=== PATIENT | female | born 1970 | race African-American/Black ===

== ENCOUNTER 2024-09-05 14:58 | Emergency (ER) | payer BC ==
[~2024-09-05] VITALS: Ht 160 cm; Wt 70.0 kg
[2024-09-05 15:03] VITALS: O2SAT 99
[2024-09-05 15:58] LABS: BASOPHILS % 0.7 % (0.0-2.0); EOSINOPHILS % 0.3 % (0.0-5.0); HEMATOCRIT. 39.8 % (36.0-48.0); HEMOGLOBIN. 13.1 g/dL (12.0-16.0); LYMPHOCYTES % 20.2 % (20.0-50.0); MEAN CORPUSCULAR VOLUME 97.2 fL (81.0-99.0); MEAN PLATELET VOLUME 7.9 fl (7.4-10.4); MONOCYTES % 6.9 % (2.0-8.0); NEUTROPHILS % 71.9 % (40.0-76.0); PLATELET 208 x1000/uL (130-400); RED BLOOD CELL COUNT 4.09 mill/uL (4.2-5.4); RED CELL DISTRIBUTION WIDTH 15.6 % (11.6-14.6); WHITE BLOOD COUNT 5.3 x1000/uL (4.5-11.0)
[2024-09-05 16:03] LABS: CHLORIDE 101 mEq/L (98-107); INR 0.9; POTASSIUM 3.9 mEq/L (3.5-5.1); PROTHROMBIN TIME 10.1 sec (9.6-11.0); SODIUM 142 mEq/L (136-145)
[2024-09-05 16:04] LABS: CARBON DIOXIDE 26 mEq/L (21-32)
[2024-09-05 16:05] LABS: CALCIUM 9.8 mg/dL (8.7-10.4)
[2024-09-05 16:09] LABS: CREATININE 1.1 mg/dL (0.6-1.0); GLUCOSE 86 mg/dL (70-105)
[2024-09-05 16:10] LABS: ETHANOL BLOOD 254 mg/dL (<10); UREA NITROGEN BLOOD 9 mg/dL (9-23)
[2024-09-05 16:28] LABS: TROPONIN I HIGH SENSITIVITY < 4 ng/L (3.0-34)
[2024-09-05] MEDS: ACETAMINOPHEN 325MG TABLET PO ONE (17:23)
[2024-09-05] MEDS: KETOROLAC 30MG/ML VIAL IV NR (17:24)
[2024-09-05] MEDS: SODIUM CHLORIDE 0.9% 1,000 ML IV NR (17:40)
[2024-09-05 20:40] LABS: TROPONIN I HIGH SENSITIVITY 4 ng/L (3.0-34)
[2024-09-05 21:17] VITALS: BP 147/90; PULSE 109; RESP 12; TEMP 36.7; O2SAT 98
== END 2024-09-05 22:02 | disposition home or self-care (01) ==
LOC: ER 14:58 → EDBEDREQ 15:33 → CANBEDREQ 21:41 → ER 22:02
DX: R55 Syncope and collapse (principal); I10 Essential (primary) hypertension
CPT/HCPCS: 80048; 80320; 83880; 85025; 85610; 84484; 36415; 71045; 70450; 93005; 96374; 99285; J1885; G0480